=== PATIENT | female | born 1990 | race Native Hawaiian/Other Pacific Islander ===

== ENCOUNTER 2017-05-04 12:47 | Emergency (ER) | payer OTHER ==
[~2017-05-04] VITALS: Ht 170.2 cm; Wt 98.0 kg
[~2017-05-04 12:47] MED LIST: CLON1TAB18 PO; GABA300C2 PO; HYDR10TA47 PO; HYDR5TAB9 PO; KETO10TA34 PO; MINOCYCLINE100 M1 PO; PRENATAL1 T10 PO; PRINIVIL10 MG PO; PROM25TA52 PO; WELLBUTRIN75 MG PO; XANAX2 MG PO; ZOFRAN8 MG PO
[2017-05-04 12:55] VITALS: BP 137/90; TEMP 98.8
== END 2017-05-04 13:48 | disposition home or self-care (01) ==
LOC: ED 12:47
DX: R10.84 Generalized abdominal pain (principal); N23 Unspecified renal colic; K21.9 Gastro-esophageal reflux disease without esophagitis
CPT/HCPCS: 99281

== ENCOUNTER 2018-02-20 11:41 | Emergency (ER) | payer OTHER ==
[~2018-02-20] VITALS: Ht 170.2 cm; Wt 102.1 kg
[2018-02-20] MEDS ORDERED: ALPR0.5T24 PO (12:14)
[2018-02-20] MEDS ORDERED: DILAUDID8 MG PO (12:16)
[2018-02-20] MEDS ORDERED: DULO60CA2 PO (12:16)
[2018-02-20] MEDS ORDERED: METOPROLOL25 M1 PO (12:17)
[2018-02-20 13:25] VITALS: BP 135/94; TEMP 97.9
== END 2018-02-20 13:26 | disposition home or self-care (01) ==
LOC: ED 11:41
DX: K04.7 Periapical abscess without sinus (principal)
CPT/HCPCS: 96372; 99283; J0696; J1885

== ENCOUNTER 2018-03-27 18:14 | Emergency (ER) | payer OTHER ==
[~2018-03-27] VITALS: Ht 170.2 cm; Wt 102.1 kg
[~2018-03-27 18:14] MED LIST changes: +ALPR0.5T24 PO; +DILAUDID8 MG PO; +DULO60CA2 PO; +METOPROLOL25 M1 PO
[2018-03-27 18:49] VITALS: BP 160/110; TEMP 98.5
== END 2018-03-27 18:53 | disposition home or self-care (01) ==
LOC: ED 18:14
DX: K08.89 Other specified disorders of teeth and supporting structures (principal); R68.84 Jaw pain
CPT/HCPCS: 99281; J1885

== ENCOUNTER 2019-09-12 10:13 | Outpatient (CLI) | payer OTHER ==
[2019-09-12 10:34] LABS: PLATELET COUNT 346 K/uL (152-353)
[2019-09-12 10:45] LABS: POTASSIUM 3.6 mmol/L (3.6-5.2)
== END 2019-09-12 20:11 | disposition home or self-care (01) ==
LOC: LABW 10:13
PROVIDERS: Nurse Practitioner Family
DX: E83.00 Disorder of copper metabolism, unspecified (principal); R53.83 Other fatigue; R53.81 Other malaise; Z84.89 Family history of other specified conditions; Z84.81 Family history of carrier of genetic disease
CPT/HCPCS: 36415; 80053; 82390; 82525; 83655; 85027

== ENCOUNTER 2019-09-19 16:11 | Emergency (ER) | payer OTHER ==
[~2019-09-19] VITALS: Ht 170.2 cm; Wt 88.5 kg
[2019-09-19 16:22] VITALS: BP 144/88; TEMP 98.1
== END 2019-09-19 17:10 | disposition home or self-care (01) ==
LOC: ED 16:11
DX: Z04.89 Encounter for examination and observation for other specified reasons (principal)
CPT/HCPCS: 81000; 81025; 99283

== ENCOUNTER 2021-06-06 09:55 | Outpatient (CLI) | payer OTHER | END 2021-06-06 19:24 | disposition home or self-care (01) | LOC: CT 09:55 | PROVIDERS: ATTEND Physician Assistant | DX: R10.9 Unspecified abdominal pain (principal); N94.89 Other specified conditions associated with female genital organs and menstrual cycle; R94.5 Abnormal results of liver function studies | CPT/HCPCS: 36415; 82565; 84520; Q9963 ==

== ENCOUNTER 2022-01-24 22:59 | Emergency (ER) | payer OTHER ==
[~2022-01-24] VITALS: Ht 170.2 cm; Wt 132.0 kg
[2022-01-24 23:49] LABS: PLATELET COUNT 213 K/uL (152-353)
[2022-01-24 23:58] LABS: POTASSIUM 3.4 mmol/L (3.6-5.2)
[2022-01-25 02:15] LABS: PARTIAL THROMBOPLASTIN TIME 28.8 SECONDS (24.5-33.6)
[2022-01-25 05:40] VITALS: BP 162/97; TEMP 98.1
== END 2022-01-25 05:45 | disposition short-term general hospital (02) ==
LOC: ED 22:59
PROVIDERS: Emergency Medicine
DX: I21.4 Non-ST elevation (NSTEMI) myocardial infarction (principal); J18.9 Pneumonia, unspecified organism; I26.99 Other pulmonary embolism without acute cor pulmonale; F17.210 Nicotine dependence, cigarettes, uncomplicated; Z11.52 Encounter for screening for COVID-19
CPT/HCPCS: 36415; 36600; 80053; 81000; 81025; 82550; 82805; 83880; 84484; 85027; 85379; 85610; 85730; 87040; 87635; 93005; 94664; 96365; 96366; 96375; 99285; J1644; J1956; J2405; Q9963; U0003